=== PATIENT | male | born 1935 | race Two or more races ===

== ENCOUNTER 2023-05-17 09:38 | Emergency (ER) | payer OTHER ==
[~2023-05-17] VITALS: Ht 162.6 cm; Wt 59.0 kg
[2023-05-17] MEDS ORDERED: METFORMIN HCL500 MG (09:52)
[2023-05-17 10:56] LABS: HEMATOCRIT 41.8 % (39.0-48.0); HEMOGLOBIN 14.1 g/dL (13-16.00); MEAN CORPUSCULAR HEMOGLOBIN 28.6 pg (27.00-32.0); MEAN CORPUSCULAR HGB CONC 33.7 g/dl (32.0-36.0); PLATELET COUNT 180 K/uL (150-450); RED BLOOD COUNT 4.92 M/uL (4.00-6.00); RED CELL DISTRIBUTION WIDTH 13.2 % (11.5-14.5)
[2023-05-17 11:20] LABS: BILIRUBIN TOTAL 0.69 mg/dL (0.3-1.2); CALCIUM 9.3 mg/dL (8.5-10.1); CREATININE SERUM 0.86 mg/dL (0.70-1.30); GFR 83.73; GLOBULINA 2.6 G/DL (2.4-3.5); POTASSIUM 4.03 mEq/L (3.5-5.1); TOTAL PROTEIN 6.6 gm/dL (6.4-8.2)
== END 2023-05-17 13:42 | disposition home or self-care (01) ==
LOC: ER 09:38
PROVIDERS: General Practice
DX: S00.93XA Contusion of unspecified part of head, initial encounter (principal); W19.XXXA Unspecified fall, initial encounter; Y93.89 Activity, other specified; Y92.018 Other place in single-family (private) house as the place of occurrence of the external cause; Y99.9 Unspecified external cause status; E11.9 Type 2 diabetes mellitus without complications; Z79.84 Long term (current) use of oral hypoglycemic drugs; I10 Essential (primary) hypertension; R42 Dizziness and giddiness